=== PATIENT | female | born 1965 | race African-American/Black ===

== ENCOUNTER 2016-12-02 11:36 | Emergency (ER) | payer OTHER ==
[~2016-12-02] VITALS: Ht 154.9 cm; Wt 70.0 kg
[~2016-12-02 11:36] MED LIST: BIOT7500 PO; BUSP5TAB PO; CHOL100025 CHEW; GABA400C5 PO; HYDR50TA15 PO; LISI-515 PO; METH500T3 PO; NOVO7030P2 SQ; TYLETAB34 PO; [UNRECOGNIZED DRUG - CODE]; [UNRECOGNIZED DRUG - OTHER] SQ; insulin syringes SQ
[2016-12-02 11:37] VITALS: BP 217/95; PULSE 103; RESP 14; TEMP 98.1; O2SAT 98
--- NOTE | 2016-12-02 13:21 | PD ---
HPI Chief Complaint: Musculoskeletal Complaint Time Seen by Provider: 13:18 Travel History International Travel<30 days: No Contact w/Intl Traveler<30days: No Traveled to known affect area: No History of Present Illness HPI Patient comes in complaining of left posterior thigh pain ongoing for approximately a week. Patient denies any known trauma or strenuous activity. Patient states that she was just lying there when the pain began. Patient describes pain as sharp aching pain in the back of her thigh that radiates proximally. Patient denies any loss or change in bowel or bladder, fevers, numbness or tingling anywhere. Patient reports that she did have a toe fracture on her left foot she's been taking Tylenol 3 for as needed. Patient states she is taking this for her posterior thigh pain with little to no improvement of her symptoms. Pain is worse with certain movement. PFSH Past Medical History Arthritis: No Cardiovascular Problems: No Diabetes: Yes (DIET CONTROLLED) Patient Takes Glucophage: No Diminished Hearing: No GERD: Yes (OCASSIONALLY) Genitourinary: No Hepatitis: No Hiatal Hernia: No Hypertension: Yes Musculoskeletal: No Reproductive: No Respiratory: No Migraines: Yes (EVERY OTHER DAY) Ulcer: No Tetanus Vaccination: < 5 Years ?: Not : 5 Para: 4 Miscarriage: 1 : 0 Past Surgical History Abdominal Surgery: No Appendectomy: No Cardiac Surgery: No Cholecystectomy: No Ear Surgery: No Endocrine Surgery: No Eye Surgery: No Genitourinary Surgery: No Gynecologic Surgery: No Oral Surgery: No Thoracic Surgery: No Social History Alcohol Use: No Tobacco Use: No Substance Use: No Allergies-Medications (Allergen,Severity, Reaction): Coded Allergies: No Known Allergies (Verified , 12/02/16) Reported Meds & Prescriptions Reported Meds & Active Scripts Active Diclofenac Sodium DR (Diclofenac Sodium) 75 Mg Tabdr 75 Mg PO Q12HR PRN Tylenol-Codeine #3 (Acetaminophen-Codeine) 300-30 mg Tab 1-2 Tab PO Q6H PRN Gabapentin 400 Mg Cap 400 Tab PO TID Hydralazine (Hydralazine HCl) 50 Mg Tab 50 Mg PO BID Take with a meal [contour next] 1 Strip SQ TID [insulin syringes] Syringe SQ TID Reported Control Test Strips (Glucose Blood) 1 Chrissie Chrissie DIRECTED Novolin 70-30 Inj (Insulin Human Isoph/Insulin Regular) 1,000 Unit/10 Ml Vial 25 Units SQ BID Methocarbamol 500 Mg Tab 500 Mg PO TID Buspirone (Buspirone HCl) 5 Mg Tab 5 Mg PO BID Lisinopril 20 Mg Tab 20 Mg PO BID Biotin 7,500 Mcg Tab 7,500 Mcg PO Vitamin D3 (Cholecalciferol) 1,000 Unit Chew 1,000 Units CHEW DAILY Review of Systems Except as stated in HPI: all other systems reviewed are Neg Physical Exam Narrative GENERAL: Well-developed, overly nourished, in no acute distress, and non-ill appearing. SKIN: Warm and dry. HEAD: Atraumatic. Normocephalic. EYES: Pupils equal and round. EOMI. No scleral icterus. No injection or drainage. ENT: No nasal bleeding or discharge. Mucous membranes pink and moist. NECK: Trachea midline. Supple. No nuclear rigidity. CARDIOVASCULAR: Dorsal pulses 2+ intact bilaterally. Capillary refill less than 2 seconds. RESPIRATORY: No accessory muscle use. No respiratory distress. MUSCULOSKELETAL: No obvious deformities. No clubbing. No cyanosis. Trace edema bilateral lower extremities left greater than right. Full range of motion. Hip: FROM and equal BL with passive flexion, extension, Abduction, Adduction, and internal/external rotation. Pulses equal BL distal to injury. Capillary refill less than 2 seconds distal to injury and equal BL. FROM distal to injury and equal BL. Strength distal to injury equal BL. NV intact distal to injury and equal BL. Plantar flexion and dorsal flexion equal BL. Dorsal pulses equal BL. Sensation is intact over first web space bilateral lower extremities. NEUROLOGICAL: Awake and alert. No obvious cranial nerve deficits. Motor grossly within normal limits. Normal speech. PSYCHIATRIC: Appropriate mood and affect; insight and judgment normal. Data Data Last Documented VS Vital Signs Date Time Temp Pulse Resp B/P Pulse Ox O2 Delivery O2 Flow Rate FiO2 12/02/16 15:55 78 16 178/89 98 Room Air 12/02/16 11:37 98.1 Orders Us Leg Venous Doppler (12/02/16 ) Ketorolac Inj (Toradol Inj) (12/02/16 13:30) Orphenadrine Sr (Norflex Cr) (12/02/16 13:30) MDM Medical Decision Making Medical Screen Exam Complete: Yes Emergency Medical Condition: Yes Differential Diagnosis DVT, muscle strain, sciatica, other Narrative Course There is no clinical evidence for fracture. There is no clinical evidence to suspect bony injury by exam. No obvious ligamental injury or internal derangement is noted at this time. The distal extremity appears neurovascularly intact, without evidence of neurovascular injury nor compartment syndrome. Tendon exam also was intact. Lower extremity Doppler was negative for DVT. The patient was discharged on pain medication and given warnings for vascular compromise. The patient is to follow up with primary care provider. The patient agrees with plan. Patient in no obvious distress upon re-evaluation. Patient reports improvement or symptoms status post medication here in the emergency department. All pertinent Radiology result(s) discussed with patient. Patient was asked if they wanted to speak to my attending, which the patient did not wish to do at this time. Discussed patient with Dr. Abrams, who is in agreement with plan of care and disposition. Any questions/concerns in reference to patient diagnosis/ condition discussed and clarified prior to patient's discharge. Reinforced sheer importance of close follow up with patient's primary physician or primary care clinic. Instructed patient to return to ED immediately, if symptoms return/ worsen. Pt showed understanding of above instructions. Further instructions and recommendations were detailed in discharge paperwork. Pt ambulated without difficulty out of ED at discharge. Diagnosis Primary Impression: Musculoskeletal pain of left lower extremity Ruled Out: DVT (deep venous thrombosis) Patient Instructions: General Instructions, Musculoskeletal Pain (ED) Additional Instructions: Follow-up with your primary care physician this week for reevaluation. Take all medication as prescribed. Return to the emergency department if symptoms get worse. Med/Other Pt SpecificInfo: Prescription(s) given Scripts Diclofenac Sodium DR 75 Mg Tabdr75 Mg PO Q12HR PRN (PAIN SCALE 1 TO 10) #14 TAB Ref 0 Prov:Suzanne Abrams MD 12/02/16 Disposition: 01 DISCHARGE HOME Condition: Stable Abdelrahman Bowen Dec 02, 2016 13:21
[2016-12-02] MEDS ORDERED: KETOROLAC TROMETHAMINE 60 MG/2 ML (IM) VIAL IM ONE (13:30)
[2016-12-02] MEDS ORDERED: ORPHENADRINE CITRATE 100 MG SUSTAINED RELEASE TAB PO ONE (13:30)
--- NOTE | 2016-12-02 14:50 | RADRPT ---
EXAM DATE/TIME: 12/02/2016 14:14 [facility] COMPARISON: No previous studies available for comparison. INDICATIONS : Pain in left leg. MEDICAL HISTORY : Migraine. Dizziness. GERD. Diabetes. Peripheral neuropathy. Right torn meniscus. SURGICAL HISTORY : None. ENCOUNTER: Initial ACUITY: 1 week PAIN SCORE: 6/10 LOCATION: Left leg. TECHNIQUE: Venous ultrasound of the leg was performed from the inguinal ligament to the proximal calf. Real-ally e, color Doppler and spectral tracing, compression and augmentation techniques were used. FINDINGS: There is normal compressibility of the deep venous system from the inguinal region to the proximal ca lf. No echogenic clot is seen in the lumen of the common femoral, femoral, popliteal, and posterior tibial veins. There is a normal response of the venous system to proximal and distal augmentation an d respiration. CONCLUSION: No DVT is identified within the left lower extremity. Juancarlos Green MD on December 02, 2016 at 14:48 Board Certified Radiologist. This report was verified electronically.
[2016-12-02] MEDS ORDERED: DICL75TA PO (15:17)
[2016-12-02 15:55] VITALS: BP 178/89; PULSE 78; RESP 16; O2SAT 98
[2016-12-27] MEDS ORDERED: OMEG1CAP50 (08:36)
[2016-12-27] MEDS ORDERED: PRED50 PO (08:51)
[2016-12-27] MEDS ORDERED: METH125I2 IM (08:51)
[2016-12-27] MEDS ORDERED: TRAM50TA PO (08:53)
[2017-01-14] MEDS ORDERED: LISI-515 PO (12:51)
[2017-02-27] MEDS ORDERED: PRED5PAK2 PO (10:45)
[2017-02-27] MEDS ORDERED: KETO60IN6 IM (10:50)
[2017-02-27] MEDS ORDERED: METH125I2 IM (10:50)
[2017-03-03] MEDS ORDERED: insulin syringes SQ (05:48)
[2017-03-03] MEDS ORDERED: [UNRECOGNIZED DRUG - CODE] SQ ×2 (06:20→06:21)
[2017-03-18] MEDS ORDERED: [UNRECOGNIZED DRUG - OTHER] SQ (13:41)
[2017-03-18] MEDS ORDERED: BAYETES ×2 (13:42→13:43)
[2017-04-02] MEDS ORDERED: KETO60IN6 IM (11:08)
[2017-04-02] MEDS ORDERED: METH125I2 IM (11:08)
[2017-04-02] MEDS ORDERED: PRED5PAK2 PO (11:10)
[2017-04-02] MEDS ORDERED: HYDR50TA15 PO (11:12)
== END 2016-12-02 16:10 | disposition home or self-care (01) ==
LOC: NEPC 11:36
DX: M79.652 Pain in left thigh (principal); E11.9 Type 2 diabetes mellitus without complications; K21.9 Gastro-esophageal reflux disease without esophagitis; I10 Essential (primary) hypertension
CPT/HCPCS: 93971; 96372; 99283; J1885

== ENCOUNTER → 2016-12-13 | Outpatient (CLI) | payer OTHER ==
[~2016-12-13] MED LIST changes: +BAYETES; +DICL75TA PO; +IBUP800T23 PO; +KETO60IN6 IM; +METH125I2 IM; +OMEG1CAP50; +PRED50 PO; +PRED5PAK2 PO; +ROBA500T PO; +TRAM50TA PO; +[UNRECOGNIZED DRUG - CODE] SQ
[2016-12-13 10:44] LABS: AUTOMATED NEUTROPHIL # 2.9 TH/MM3 (1.8-7.7); BASOPHIL % 0.7 % (0.0-2.0); EOSINOPHIL # 0.2 TH/MM3 (0-0.4); HEMATOCRIT 32.3 % (35.0-46.0); HEMO FLAGS DIFF FINAL; LYMPH % 37.2 % (9.0-44.0); MEAN CELL VOLUME 88.6 FL (80.0-100.0); MEAN CORPUSCULAR HEMOGLOBIN 29.1 PG (27.0-34.0); MEAN CORPUSCULAR HGB CONC 32.9 % (32.0-36.0); MONO % 4.3 % (0.0-8.0); NEUT % 53.8 % (16.0-70.0); PLATELET COUNT 310 TH/MM3 (150-450); RED BLOOD COUNT 3.64 MIL/MM3 (4.00-5.30); RED CELL DISTRIBUTION WIDTH 13.8 % (11.6-17.2); WHITE BLOOD COUNT 5.4 TH/MM3 (4.0-11.0)
[2016-12-13 11:30] LABS: ALT (GPT) 14 U/L (10-53); ANION GAP 6 MEQ/L (5-15); AST (GOT) 14 U/L (15-37); BICARBONATE 27.4 MEQ/L (21.0-32.0); BLOOD UREA NITROGEN 21 MG/DL (7-18); CHLORIDE 109 MEQ/L (98-107); GLOMERULAR FILTRATION RATE 45 ML/MIN (>89); GLUCOSE,FASTING 80 MG/DL (74-99); POTASSIUM 4.1 MEQ/L (3.5-5.1); SODIUM (NA) 142 MEQ/L (136-145)
[2016-12-13 11:39] LABS: ALKALINE PHOSPHATASE 63 U/L (45-117); HDL CHOLESTEROL 57.7 MG/DL (40.0-60.0); LDL CHOLESTEROL 90 MG/DL (0-99); TOTAL BILIRUBIN ADULT 0.3 MG/DL (0.2-1.0)
[2016-12-13 16:14] LABS: HEMOGLOBIN A1a 1.5 %; HEMOGLOBIN A1b 0.9 %; HEMOGLOBIN Ao 81.4 %; HEMOGLOBIN LA1C 1.7 %
== END ==
LOC: CLAB 09:56
PROVIDERS: ATTEND Family Medicine
DX: E11.9 Type 2 diabetes mellitus without complications (principal); I10 Essential (primary) hypertension; M79.605 Pain in left leg; N19 Unspecified kidney failure
CPT/HCPCS: 36415; 80053; 80061; 83036; 84443; 85025

== ENCOUNTER 2017-02-13 17:14 | Emergency (ER) | payer OTHER ==
[~2017-02-13] VITALS: Ht 154.9 cm; Wt 70.0 kg
[~2017-02-13 17:14] MED LIST changes: -BAYETES; -IBUP800T23 PO; -KETO60IN6 IM; -METH125I2 IM; -PRED5PAK2 PO; -ROBA500T PO; -[UNRECOGNIZED DRUG - CODE] SQ
[2017-02-13 17:15] VITALS: BP 169/90; PULSE 92; RESP 20; TEMP 98.7; O2SAT 100
--- NOTE | 2017-02-13 17:43 | PD ---
HPI Chief Complaint: Pain: Acute or Chronic Time Seen by Provider: 17:43 Travel History International Travel<30 days: No Contact w/Intl Traveler<30days: No Traveled to known affect area: No History of Present Illness HPI 51-year-old female presents to the emergency Department with complaint of chronic left-sided low back pain with left-sided sciatica for approximately 2 months. She has history of chronic low back pain. Denies new or recent injury. Denies paresthesias, loss of sensation, decreased range of motion, decreased strength bilateral lower extremities. Denies fever, chills, nausea, vomiting. Denies IV drug use. Denies cancer. Denies encopresis, incontinence , saddle anesthesias. Has tried multiple [id number] remedies and treatments with no relief of symptoms. Pain is aggravated with lying down. Pain is decreased to standing up. Dr. Hopson is primary care provider. History of diabetes. No other modifying factors or associated signs and symptoms. PFSH Past Medical History Arthritis: No Cardiovascular Problems: No Diabetes: Yes (DIET CONTROLLED) Diminished Hearing: No GERD: Yes (OCASSIONALLY) Genitourinary: No Hepatitis: No Hiatal Hernia: No Hypertension: Yes Musculoskeletal: No Reproductive: No Respiratory: No Migraines: Yes (EVERY OTHER DAY) Ulcer: No : 5 Para: 4 Miscarriage: 1 : 0 Past Surgical History Abdominal Surgery: No Appendectomy: No Cardiac Surgery: No Cholecystectomy: No Ear Surgery: No Endocrine Surgery: No Eye Surgery: No Genitourinary Surgery: No Gynecologic Surgery: No Oral Surgery: No Thoracic Surgery: No Social History Alcohol Use: No Tobacco Use: No Substance Use: No Allergies-Medications (Allergen,Severity, Reaction): Coded Allergies: No Known Allergies (Verified , 02/13/17) Reported Meds & Prescriptions Reported Meds & Active Scripts Active Ibuprofen 800 Mg Tab 800 Mg PO Q6HR PRN Robaxin (Methocarbamol) 500 Mg Tab 500 Mg PO QID PRN Lisinopril 20 Mg Tab 20 Mg PO BID Tramadol (Tramadol HCl) 50 Mg Tab 50 Mg PO Q8H PRN Prednisone 50 Mg Tab 50 Mg PO DAILY Diclofenac Sodium DR (Diclofenac Sodium) 75 Mg Tabdr 75 Mg PO Q12HR PRN Tylenol-Codeine #3 (Acetaminophen-Codeine) 300-30 mg Tab 1-2 Tab PO Q6H PRN Gabapentin 400 Mg Cap 400 Tab PO TID Hydralazine (Hydralazine HCl) 50 Mg Tab 50 Mg PO BID Take with a meal [contour next] 1 Strip SQ TID [insulin syringes] Syringe SQ TID Reported [place] 3 500 500 mg ([place]-3 Fatty Acids) 1 Cap Cap Control Test Strips (Glucose Blood) 1 Chrissie Chrissie DIRECTED Novolin 70-30 Inj (Insulin Human Isoph/Insulin Regular) 1,000 Unit/10 Ml Vial 25 Units SQ BID Methocarbamol 500 Mg Tab 500 Mg PO TID Buspirone (Buspirone HCl) 5 Mg Tab 5 Mg PO BID Biotin 7,500 Mcg Tab 7,500 Mcg PO Vitamin D3 (Cholecalciferol) 1,000 Unit Chew 1,000 Units CHEW DAILY Review of Systems Except as stated in HPI: all other systems reviewed are Neg Physical Exam Narrative GENERAL: Well-nourished, well-developed female patient, in no acute distress SKIN: Warm and dry. HEAD: Atraumatic. Normocephalic. EYES: Pupils equal and round. No scleral icterus. No injection or drainage. ENT: Mucosa pink and moist. Airway patent. NECK: Trachea midline. CARDIOVASCULAR: Regular rate. RESPIRATORY: No accessory muscle use. GASTROINTESTINAL: Rounded. MUSCULOSKELETAL: Bilateral lower extremities supple and non-tense with 2+ pedal pulses and sensory intact; with full range of motion and 5/5 strength. Active dorsiflexion and extension of bilateral feet. Ambulatory in room with normal gait. Sitting up in bed at 90. No obvious deformities. No clubbing. No cyanosis. No edema. BACK: No midline point tenderness on palpation of the lumbar spine. Tenderness on palpation of left iliosacral area. No obvious deformities. NEUROLOGICAL: Awake and alert. Oriented 3. No obvious cranial nerve deficits. Motor grossly within normal limits. Normal speech. Moves all extremities. 5/5 strength to all extremities. Sensory intact. PSYCHIATRIC: Appropriate mood and affect; insight and judgment normal. Data Data Last Documented VS Vital Signs Date Time Temp Pulse Resp B/P Pulse Ox O2 Delivery O2 Flow Rate FiO2 02/13/17 17:15 98.7 92 20 169/90 100 Room Air Orders Ketorolac Inj (Toradol Inj) (02/13/17 17:45) Orphenadrine Inj (Norflex Inj) (02/13/17 17:45) [facility] Medical Decision Making Medical Screen Exam Complete: Yes Emergency Medical Condition: Yes Medical Record Reviewed: Yes Differential Diagnosis Chronic low back pain, sciatica, acute exacerbation of chronic low back pain Narrative Course 51-year-old female with left-sided low back pain and left-sided sciatica that has been occurring for the past 2 months. Denies new or recent injury. She is patient of Dr. Thompson. Denies IV drug use, cancer. Denies fever, chills, nausea, vomiting. Patient is ambulatory with normal gait and the room. No midline point tenderness on palpation of the lumbar spine. Denies encopresis, incontinence, saddle anesthesias. Toradol and Norflex administered in the ER. Ibuprofen and Robaxin prescribed for home. Patient verbalizes understanding and agreement with treatment plan. Patient is medically cleared and stable for discharge. Discussed reasons to return to the emergency department. Instructed patient to follow up with primary care provider. Patient agrees with treatment plan. The patients vital signs are stable and the patient is stable for outpatient follow-up and treatment. Patient discharged home, stable and in no acute distress. Diagnosis Primary Impression: Low back pain with left-sided sciatica Qualified Code: M54.42 - Left-sided low back pain with left-sided sciatica, unspecified chronicity Referrals: Primary Care Physician Patient Instructions: Acute Low Back Pain (ED), General Instructions, Sciatica (ED) Departure Forms: Tests/Procedures, Work Release Enter return to work date: Feb 14, 2017 Additional Instructions: Tylenol or ibuprofen as directed and as needed for pain Robaxin as prescribed and as needed for muscle spasm Heating pad and/or ice to affected area to reduce pain Avoid aggravating activities; increase activity as tolerated Follow-up with primary care provider Return to emergency department immediately with worsening of symptoms Med/Other Pt SpecificInfo: Prescription(s) given Scripts Ibuprofen 800 Mg [id number] Mg PO Q6HR PRN (PAIN) #30 TAB Ref 0 Prov:Kianna Knox 02/13/17 Methocarbamol (Robaxin)500 Mg [id number] Mg PO QID PRN (MUSCLE SPASM) #30 TAB Ref 0 Prov:Kianna Knox 02/13/17 Disposition: 01 DISCHARGE HOME Condition: Stable Kianna Knox Feb 13, 2017 17:43
[2017-02-13] MEDS ORDERED: KETOROLAC TROMETHAMINE 60 MG/2 ML (IM) VIAL IM ONE (17:45)
[2017-02-13] MEDS ORDERED: ORPHENADRINE INJ 60 MG/2 ML AMP IM ONE (17:45)
[2017-02-13] MEDS ORDERED: IBUP800T23 PO (17:50)
[2017-02-13] MEDS ORDERED: ROBA500T PO (17:50)
[2017-02-27] MEDS ORDERED: PRED5PAK2 PO (10:45)
[2017-02-27] MEDS ORDERED: KETO60IN6 IM (10:50)
[2017-02-27] MEDS ORDERED: METH125I2 IM (10:50)
[2017-03-03] MEDS ORDERED: insulin syringes SQ (05:48)
[2017-03-03] MEDS ORDERED: [UNRECOGNIZED DRUG - CODE] SQ ×2 (06:20→06:21)
[2017-03-18] MEDS ORDERED: [UNRECOGNIZED DRUG - OTHER] SQ (13:41)
[2017-03-18] MEDS ORDERED: BAYETES ×2 (13:42→13:43)
[2017-04-02] MEDS ORDERED: KETO60IN6 IM (11:08)
[2017-04-02] MEDS ORDERED: METH125I2 IM (11:08)
[2017-04-02] MEDS ORDERED: PRED5PAK2 PO (11:10)
[2017-04-02] MEDS ORDERED: HYDR50TA15 PO (11:12)
== END 2017-02-13 18:25 | disposition home or self-care (01) ==
LOC: NEPK 17:14
DX: M54.42 Lumbago with sciatica, left side (principal); E11.9 Type 2 diabetes mellitus without complications; Z87.19 Personal history of other diseases of the digestive system; I10 Essential (primary) hypertension; Z79.4 Long term (current) use of insulin; Z86.69 Personal history of other diseases of the nervous system and sense organs
CPT/HCPCS: 96372; 99283; J1885; J2360

== ENCOUNTER → 2017-04-02 | Outpatient (CLI) | payer OTHER ==
[~2017-04-02] MED LIST changes: +BAYETES; -DICL75TA PO; +IBUP800T23 PO; +KETO60IN6 IM; +METH125I2 IM; +PRED5PAK2 PO; +[UNRECOGNIZED DRUG - CODE] SQ
[2017-04-02 12:24] LABS: BICARBONATE 27.1 MEQ/L (21.0-32.0); POTASSIUM 4.2 MEQ/L (3.5-5.1)
== END ==
LOC: CLAB 11:28
PROVIDERS: ATTEND Family Medicine
DX: N19 Unspecified kidney failure (principal)
CPT/HCPCS: 36415; 80048

== ENCOUNTER → 2017-09-04 | Outpatient (CLI) | payer OTHER ==
[~2017-09-04] MED LIST changes: -BIOT7500 PO; +BLOOD GLUCOSE T1 TES; +HYDR-3801 PO; -KETO60IN6 IM; -METH125I2 IM; -[UNRECOGNIZED DRUG - CODE]
[2017-09-04 11:10] LABS: AUTOMATED NEUTROPHIL # 4.3 TH/MM3 (1.8-7.7); BASOPHIL # 0.1 TH/MM3 (0-0.2); BASOPHIL % 0.8 % (0.0-2.0); EOSINOPHIL # 0.2 TH/MM3 (0-0.4); HEMATOCRIT 31.9 % (35.0-46.0); HEMOGLOBIN 10.8 GM/DL (11.6-15.3); LYMPH % 35.1 % (9.0-44.0); LYMPHOCYTE # 2.6 TH/MM3 (1.0-4.8); MEAN CELL VOLUME 89.1 FL (80.0-100.0); MEAN CORPUSCULAR HEMOGLOBIN 30.2 PG (27.0-34.0); MEAN CORPUSCULAR HGB CONC 33.9 % (32.0-36.0); MEAN PLATELET VOLUME 7.9 FL (7.0-11.0); MONO % 3.5 % (0.0-8.0); MONOCYTE # 0.3 TH/MM3 (0-0.9); NEUT % 57.6 % (16.0-70.0); PLATELET COUNT 325 TH/MM3 (150-450); RED BLOOD COUNT 3.58 MIL/MM3 (4.00-5.30); RED CELL DISTRIBUTION WIDTH 14.5 % (11.6-17.2); WHITE BLOOD COUNT 7.5 TH/MM3 (4.0-11.0)
[2017-09-04 11:45] LABS: ALBUMIN 3.5 GM/DL (3.4-5.0); BICARBONATE 27.1 MEQ/L (21.0-32.0); CREATININE 1.47 MG/DL (0.50-1.00)
[2017-09-04 11:56] LABS: CHOLESTEROL/ HDL RATIO 2.97 RATIO; HDL CHOLESTEROL 57.5 MG/DL (40.0-60.0); PHOSPHORUS 3.6 MG/DL (2.5-4.9)
== END ==
LOC: CLAB 10:34
PROVIDERS: ATTEND Internal Medicine Nephrology
DX: N18.3 Chronic kidney disease, stage 3 (moderate) (principal); E11.22 Type 2 diabetes mellitus with diabetic chronic kidney disease
CPT/HCPCS: 36415; 80061; 80069; 82043; 82306; 83970; 85025

== ENCOUNTER 2017-11-25 10:13 | Emergency (ER) | payer OTHER ==
[~2017-11-25] VITALS: Ht 154.9 cm; Wt 72.0 kg
[~2017-11-25 10:13] MED LIST changes: +IBUP1TAB7 PO; -IBUP800T23 PO
[2017-11-25 10:16] VITALS: BP 165/78; PULSE 93; RESP 18; TEMP 98; O2SAT 100
[2017-11-25] MEDS ORDERED: MEDR4PAK PO (11:43)
[2017-11-25] MEDS ORDERED: ROBA500T PO (11:43)
--- NOTE | 2017-11-25 11:44 | PD ---
HPI Chief Complaint: Back/ Neck Pain or Injury Time Seen by Provider: 11:26 Travel History International Travel<30 days: No Contact w/Intl Traveler<30days: No Traveled to known affect area: No History of Present Illness HPI This is a 52-year-old female here with left sciatic pain. Patient has a history of sciatica. Reports pain has increased in the last 7 days. She denies injury or trauma. No fever chills. No incontinence. Symptom severity is moderate. Aggravated by movement and relieved with rest Reports treatment with steroids and muscle relaxers in the past. PFSH Past Medical History Arthritis: No Cardiovascular Problems: No Diabetes: Yes (DIET CONTROLLED) Diminished Hearing: No GERD: Yes (OCASSIONALLY) Genitourinary: No Hepatitis: No Hiatal Hernia: No Hypertension: Yes Musculoskeletal: No Reproductive: No Respiratory: No Migraines: Yes (EVERY OTHER DAY) Ulcer: No : 5 Para: 4 Miscarriage: 1 : 0 Past Surgical History Abdominal Surgery: No Appendectomy: No Cardiac Surgery: No Cholecystectomy: No Ear Surgery: No Endocrine Surgery: No Eye Surgery: No Genitourinary Surgery: No Gynecologic Surgery: No Oral Surgery: No Thoracic Surgery: No Social History Alcohol Use: No Tobacco Use: No Substance Use: No Allergies-Medications (Allergen,Severity, Reaction): Coded Allergies: No Known Allergies (Verified Adverse Reaction, Unknown, 11/25/17) Reported Meds & Prescriptions Reported Meds & Active Scripts Active Medrol Dosepak (Methylprednisolone) 4 Mg Dspk 4 Mg PO DIRECTED Per Pharmacist direction Robaxin (Methocarbamol) 500 Mg Tab 500 Mg PO QID 4 Days Prednisone (48) 5 mg tab Dose Pack (Prednisone) 5 Mg Dspk 5 Mg PO DIRECTED Novolin 70-30 Inj (Insulin Human Isoph/Insulin Regular) 1,000 Unit/10 Ml Vial 25 Units SQ BID Gabapentin 400 Mg Cap 400 Tab PO TID Hydralazine (Hydralazine HCl) 50 Mg Tab 50 Mg PO TID Take with a meal Hernán Contour Blood Glucose Strips (Blood Glucose Test Strips) 1 Chrissie Chrissie 1 Strip .ROUTE TID [contour next] 1 Strip SQ TID Monoject Insulin Syringe/ 25G X 5/8" 1 ml (Insulin Syringe/Needle U-100) 1 Mis Mis Syringe SQ TID [insulin syringes] Syringe SQ TID Ibuprofen 800 Mg Tab 800 Mg PO Q6HR PRN Lisinopril 20 Mg Tab 20 Mg PO BID Tramadol (Tramadol HCl) 50 Mg Tab 50 Mg PO Q8H PRN Prednisone 50 Mg Tab 50 Mg PO DAILY Tylenol-Codeine #3 (Acetaminophen-Codeine) 300-30 mg Tab 1-2 Tab PO Q6H PRN Reported Blood Glucose Test Strips Strips Strip 1 Ea .ROUTE DIRECTED Hydralazine (Hydralazine HCl) 100 Mg Tab 50 Mg PO TID Take with meals [place] 3 500 500 mg ([place]-3 Fatty Acids) 1 Cap Cap Methocarbamol 500 Mg Tab 500 Mg PO TID Buspirone (Buspirone HCl) 5 Mg Tab 5 Mg PO BID Vitamin D3 (Cholecalciferol) 1,000 Unit Chew 1,000 Units CHEW DAILY Review of Systems Except as stated in HPI: all other systems reviewed are Neg General / Constitutional: No: Fever Gastrointestinal: No: Abdominal Pain Genitourinary: No: Dysuria Physical Exam Narrative GENERAL: Alert well-appearing 52-year-old female. SKIN: Warm and dry. HEAD: Normocephalic. EYES: No injection or drainage. CARDIOVASCULAR: Regular rate and rhythm RESPIRATORY: Breath sounds equal bilaterally. No accessory muscle use. GASTROINTESTINAL: Abdomen soft, non-tender, nondistended. MUSCULOSKELETAL: No cyanosis, or edema. Normal strength and sensation in the lower extremities. 2+ patellar and Achilles DTRs. Patient able to dorsiflex and plantarflex great toe bilaterally. BACK: Tenderness over the left sacroiliac joint. Positive straight leg raise. Without obvious deformity. No CVA tenderness. Data Data Last Documented VS Vital Signs Date Time Temp Pulse Resp B/P (MAP) Pulse Ox O2 Delivery O2 Flow Rate FiO2 1518 10:16 98.0 93 18 165/78 (107) 100 MDM Medical Decision Making Medical Screen Exam Complete: Yes Emergency Medical Condition: Yes Differential Diagnosis Sciatica, lumbar strain, DJD, herniated disc Narrative Course 52-year-old female here with left-sided sciatica pain. History of sciatica. No midline spine tenderness. Normal neurologic exam. Vital signs are stable. Patient be discharged home Diagnosis Primary Impression: Low back pain with left-sided sciatica Qualified Codes: M54.42 - Lumbago with sciatica, left side Referrals: Primary Care Physician Additional Instructions: [id number] ibuprofen 800 milligrams (4 tablets) every 6 hours as needed for pain. Take this with food. Avoid heavy lifting or strenuous activity. Use ice and/or heat for comfort. Medications as prescribed. Scripts Methylprednisolone Dosepak (Medrol Dosepak) 4 Mg Dspk 4 MG PO DIRECTED, #1 DSPK 0 Refills Per Pharmacist direction Prov: Stephanie Ordonez 11/25/17 Methocarbamol (Robaxin) 500 Mg Tab 500 MG PO QID for Muscle Spasm for 4 Days, TAB 0 Refills Prov: Stephanie Ordonez 11/25/17 Disposition: 01 DISCHARGE HOME Condition: Stable Stephanie Ordonez Nov 25, 2017 11:44
== END 2017-11-25 12:36 | disposition home or self-care (01) ==
LOC: NEPK 10:13
DX: M54.42 Lumbago with sciatica, left side (principal); E11.9 Type 2 diabetes mellitus without complications; I10 Essential (primary) hypertension; Z87.19 Personal history of other diseases of the digestive system; Z86.69 Personal history of other diseases of the nervous system and sense organs; Z79.4 Long term (current) use of insulin
CPT/HCPCS: 99284

== ENCOUNTER → 2018-03-17 | Outpatient (CLI) | payer OTHER ==
[2018-03-17 12:19] LABS: AUTOMATED NEUTROPHIL # 4.6 TH/MM3 (1.8-7.7); BASOPHIL % 0.4 % (0.0-2.0); EOSINOPHIL # 0.2 TH/MM3 (0-0.4); EOSINOPHIL % 2.9 % (0.0-4.0); HEMO FLAGS DIFF FINAL; HEMOGLOBIN 10.5 GM/DL (11.6-15.3); LYMPH % 36.1 % (9.0-44.0); LYMPHOCYTE # 2.9 TH/MM3 (1.0-4.8); MEAN CELL VOLUME 85.9 FL (80.0-100.0); MEAN CORPUSCULAR HGB CONC 33.8 % (32.0-36.0); MEAN PLATELET VOLUME 7.2 FL (7.0-11.0); MONOCYTE # 0.3 TH/MM3 (0-0.9); NEUT % 56.6 % (16.0-70.0); PLATELET COUNT 401 TH/MM3 (150-450); RED BLOOD COUNT 3.61 MIL/MM3 (4.00-5.30); RED CELL DISTRIBUTION WIDTH 14.6 % (11.6-17.2); WHITE BLOOD COUNT 8.1 TH/MM3 (4.0-11.0)
[2018-03-17 13:10] LABS: CREATININE RANDOM URINE 299 MG/DL (27-300); MICRO ALBUMIN RANDOM URINE RAW 39.2 MG/L (0.0-30.0); MICROALBUMIN/CREAT RATIO RAND 13 MG/G CRE (0-30)
[2018-03-17 13:24] LABS: ALBUMIN 3.5 GM/DL (3.4-5.0); ANION GAP 6 MEQ/L (5-15); BICARBONATE 29.7 MEQ/L (21.0-32.0); BLOOD UREA NITROGEN 13 MG/DL (7-18); CALCIUM 8.6 MG/DL (8.5-10.1); CHLORIDE 106 MEQ/L (98-107); CREATININE 1.46 MG/DL (0.50-1.00); GLOMERULAR FILTRATION RATE 45 ML/MIN (>89); GLUCOSE,FASTING 80 MG/DL (74-99); PHOSPHORUS 2.6 MG/DL (2.5-4.9); POTASSIUM 3.8 MEQ/L (3.5-5.1); SODIUM (NA) 142 MEQ/L (136-145)
[2018-03-17 13:30] LABS: PARATHYROID HORMONE INTACT 108.7 PG/ML (12.4-76.8)
[2018-03-17 21:49] LABS: HEMOGLOBIN A1C 8.4 % (4.3-6.0); HEMOGLOBIN A1a 1.7 %; HEMOGLOBIN Ao 78.8 %; HEMOGLOBIN F 3.3 %; HEMOGLOBIN LA1C 1.7 %; HEMOGLOBIN P3 4.6 %
== END ==
LOC: CLAB 11:38
DX: E11.22 Type 2 diabetes mellitus with diabetic chronic kidney disease (principal); N18.3 Chronic kidney disease, stage 3 (moderate)
CPT/HCPCS: 36415; 80069; 82043; 82306; 83036; 83970; 85025